=== PATIENT | female | born 1945 | race Two or more races ===

== ENCOUNTER 2020-05-10 10:30 | Outpatient (CLI) | payer MEDICARE, SELFPAY ==
--- NOTE | ~2020-05-10 | MM_ITS ---
EXAMINATION: MM screening vasu BI w andrzej HISTORY: Screening mammogram TECHNIQUE: Craniocaudal and mediolateral oblique 3-D tomosynthesis images were obtained and synthetic 2-D images were generated. CAD analysis was submitted and interpreted. COMPARISON: 01/22/2019, 04/29/2017, 03/02/2016 bilateral digital screening mammogram examinations BREAST PARENCHYMAL COMPOSITION: There are scattered areas of fibroglandular density. FINDINGS: Stable mild fibroglandular asymmetry. Scattered bilateral benign calcifications. There is n o evidence of suspicious mass, calcification, or architectural distortion to suggest malignancy in ei ther breast. There has been no suspicious interval change. IMPRESSION: 1. No mammographic evidence of malignancy. 2. Recommend routine screening mammography in one year. BI-RADS Category 2: Benign finding(s). Reviewed, dictated and finalized at location A.
== END 2020-05-10 10:31 | disposition home or self-care (01) ==
LOC: ANHIMG 10:33
PROVIDERS: PCP Family Medicine; Visit Provider Family Medicine
DX: Z12.31 Encounter for screening mammogram for malignant neoplasm of breast (principal)
CPT/HCPCS: 77063; 77067

== ENCOUNTER 2021-09-30 16:37 | Emergency (ER) | payer MEDICARE, SELFPAY ==
--- NOTE | ~2021-09-30 | XR_ITS ---
XR chest 2V DATE: 09/30/2021 17:25 INDICATION: Irregular heartbeat TECHNIQUE: PA and lateral views COMPARISON: 01/30/2019 CT lung cancer screening FINDINGS: Normal heart size. There is aortic calcification and mild tortuosity. No hilar or mediastin al enlargement is evident. No pulmonary infiltrate or consolidation, pleural effusion or pulmonary va scular congestion or pneumothorax. There is osteopenia. Degenerative spurring of the thoracic and lumbar spine. IMPRESSION: No active cardiopulmonary disease Aortic atherosclerosis Reviewed, dictated and finalized at location A. ER IN
[2021-09-30 16:48] VITALS: BP 149/77; PULSE 85; RESP 16; TEMP 36.6; O2SAT 99
--- NOTE | 2021-09-30 16:51 | ECG_ITS ---
Measurements Intervals [place] Rate: 80 P: 59 SD: 197 QRS: -5 QRSD: 142 T: 29 QT: 396 QTc: 460 Interpretive Statements SINUS RHYTHM FREQUENT VENTRICULAR PREMATURE COMPLEXES POSSIBLE LEFT ATRIAL ENLARGEMENT RIGHT BUNDLE BRANCH BLOCK ABNORMAL ECG Electronically Signed On 09-30-2021 20:24:42 EVENT HOST by Tripp Garnica D.O.
[2021-09-30 17:32] LABS: Partial Thromboplastin Time 30.5 SECONDS (22.3-36.8); Prothrombin Time 12.6 Seconds (11.1-14.7)
[2021-09-30 17:33] LABS: Basophils Percent Auto 0.4 % (0.2-1.2); Eosinophils Percent Auto 0.4 % (0-4.4); Hematocrit 34.5 % (37.0-47.0); Hemoglobin 11.2 g/dL (12.0-15.0); Immature Granulocyte Absolute 0.02 K/mm3 (0.00-0.031); Immature Granulocyte Percent A 0.3 % (0-0.5); Lymphocytes Absolute Auto 2.87 K/mm3 (0.9-3.2); Lymphocytes Percent Auto 36.8 % (18.3-44.2); Mean Corpuscular HGB Conc 32.5 g/dl (32-36); Mean Corpuscular Hemoglobin 29.8 pg (26-34); Mean Corpuscular Volume 91.8 fl (80-100); Mean Platelet Volume 10.6 fl (7.4-10.4); Monocytes Absolute Auto 0.5 K/mm3 (0.1-0.6); Monocytes Percent Auto 6.7 % (2.6-8.5); Neutrophils Absolute Auto 4.3 K/mm3 (1.3-6.7); Neutrophils Percent Auto 55.4 % (45.5-73.1); Platelet Count Result 244 k/mm3 (150-375); Red Blood Count 3.76 M/mm3 (4.2-5.4); Red Cell Distribution Width 14.3 % (11.5-14.5); White Blood Count 7.8 K/mm3 (4.5-10.0)
[2021-09-30 18:17] LABS: Alanine Aminotransferase 16 U/L (4-35); Albumin Level 4.2 g/dL (3.5-5.1); Alkaline Phosphatase 86 U/L (38-126); Anion Gap 8 mmol/L (8-16); Aspartate Amino Transferase 24 U/L (14-36); Bilirubin,Total 0.3 mg/dL (0.2-1.3); Blood Urea Nitrogen 18 mg/dL (7-17); Calcium 9.5 mg/dL (8.4-10.2); Carbon Dioxide 26 mmol/L (22-30); Chloride 101 mmol/L (98-107); Estimated CRCL calculation 40 ml/min; Estimated Glomerular Filt Rate 48; Glucose 111 mg/dL (65-110); Magnesium 1.7 mg/dL (1.6-2.3); Potassium 4.1 mmol/L (3.4-5.0); Sodium 135 mmol/L (137-145); Troponin I < 0.012 ng/mL (0.000-0.034)
[2021-09-30 21:03] VITALS: BP 142/62; PULSE 90; RESP 18; O2SAT 98
--- NOTE | 2021-09-30 21:18 | ED.GENADULT ---
HPI - General Adult General Chief complaint: Arrhythmia/Palpitations Stated complaint: irregular heart beat, no symptoms Time Seen by Provider: 09/30/21 21:09 History of Present Illness HPI narrative: Patient is a 76-year-old female presents the emergency department with chief complaint of palpitations. Patient reports that her visiting nurse today listened to her and told her I hear something funny in the top part of your heart the patient was instructed to go to her primary care physician who did an EKG and noticed that she had some PVCs the primary doctor sent her to the emergency department for evaluation of her PVCs currently the patient reports that she has no complaints denies syncope denies palpitations states that she feels fine and wants to go get something to eat. Related Data Home Medications Medication Instructions Recorded Confirmed aspirin 81 mg tablet,delayed 81 mg PO DAILY 10/30/19 09/30/21 release exenatide microspheres 2 mg/0.65 2 mg SUB-Q Q7D 10/30/19 09/30/21 mL subcutaneous pen injector insulin glargine 100 unit/mL (3 35 unit SUB-Q DAILY ml 10/30/19 09/30/21 mL) subcutaneous pen insulin regular human 100 unit/mL 40 unit SUB-Q BID ml 10/30/19 09/30/21 injection solution metformin 500 mg tablet 1,000 mg PO BID tablet 10/30/19 09/30/21 Allergies Allergy/AdvReac Type Severity Reaction Status Date / Time No Known Allergies Allergy Verified 09/30/21 14:28 Review of Systems Review of Systems: A 10 system review of systems was completed on the patient and is negative except for what is stated in the HPI. Nursing and ancillary documentation was reviewed. [facility] Past Medical History Medical History Obstructive sleep apnea (adult) (pediatric) Family History Family History Mother Diabetes mellitus Hypertension Family history of cardiovascular disease Family history of aortic aneurysm Sibling Diabetes mellitus Hypertension Father Hypertension Family history of lung cancer Family history of primary malignant neoplasm of liver Social History Social History Smoking status: Current every day smoker Second hand tobacco smoke exposure: Yes Alcohol intake: never Exam Narrative: GENERAL: Well-appearing, well-nourished, and in no acute distress. HEAD: Normocephalic, atraumatic. EYES: PERRLA and EOMI. ENT: Nares clear, no rhinorrhea or epistaxis. Mucous membranes moist. NECK: Supple. CHEST: Clear to auscultation. No respiratory distress. HEART: Regular rate and rhythm. No murmur heard. Normal peripheral pulses. ABDOMEN: Soft, nontender, nondistended, normal active bowel sounds. EXTREMITIES: Normal range of motion. No edema. SKIN: Warm, dry, no rash. NEURO: No focal deficits. Alert and oriented x3. PSYCH: Normal mood and affect. Course Course Emergency Course: EKG sinus rhythm rate of 80 occasional PVCs Vital Signs Vital signs: Vital Signs Temperature 36.6 C 09/30/21 16:48 Pulse Rate 85 09/30/21 16:48 Respiratory Rate 16 09/30/21 16:48 Blood Pressure 149/77 H 09/30/21 16:48 Pulse Oximetry 99 09/30/21 16:48 Temperature 36.6 C 09/30/21 16:48 Pulse Rate 90 09/30/21 21:03 Respiratory Rate 18 09/30/21 21:03 Blood Pressure 142/62 H 09/30/21 21:03 Pulse Oximetry 98 09/30/21 21:03 Medical Decision Making Vital Signs Vital Signs: Vital Signs Temperature 36.6 C 09/30/21 16:48 Pulse Rate 85 09/30/21 16:48 Respiratory Rate 16 09/30/21 16:48 Blood Pressure 149/77 H 09/30/21 16:48 Pulse Oximetry 99 09/30/21 16:48 Temperature 36.6 C 09/30/21 16:48 Pulse Rate 90 09/30/21 21:03 Respiratory Rate 18 09/30/21 21:03 Blood Pressure 142/62 H 09/30/21 21:03 Pulse Oximetry 98 09/30/21 21:03 Lab Data Result diagrams:
[2021-09-30] MEDS: MAGNESIUM SULF 2 GM/WATER 50ML 2 GM/50 ML BAG IVPB (21:37)
[2021-09-30 23:14] VITALS: BP 141/72; PULSE 88; RESP 18; O2SAT 97
== END 2021-09-30 23:02 | disposition home or self-care (01) ==
PROVIDERS: Family Medicine; Emergency Provider Emergency Medicine; PCP Family Medicine
DX: I49.3 Ventricular premature depolarization (principal); R00.2 Palpitations; E83.42 Hypomagnesemia; Z79.82 Long term (current) use of aspirin; Z79.4 Long term (current) use of insulin; G47.33 Obstructive sleep apnea (adult) (pediatric); F17.200 Nicotine dependence, unspecified, uncomplicated
CPT/HCPCS: 36415; 71046; 80053; 83735; 84484; 85025; 85610; 85730; 93005; 96365; 99284; J3475

== ENCOUNTER 2021-10-26 12:34 | Outpatient (CLI) | payer MEDICARE, SELFPAY ==
--- NOTE | 2021-10-30 10:07 | WPDHOLTEREM ---
Holter/Event Monitor Holter/Event Monitor Date of procedure: 10/26/21 Holter/Event Procedure: 24 Hr Holter Monitor Indications: PVC's Conclusion: 1. 24 hour holter monitor on 10/26/21. 2. Underlying rhythm is sinus rhythm. HR range 69-113 bpm; average HR 84 bpm. 3. There are 3 premature supraventricular complexes and 1 supraventricular couplet. No supraventricular tachycardia. 4. There are 19,675 premature ventricular complexes, 1,489 ventricular couplets, 8 ventricular triplets, 1,103 ventricular bigeminy and 1,765 ventricular trigeminy. There is one 4 beat multifocal ventricular complexes at 70 bpm. No ventricular tachycardia. 5. No sinoatrial or atrioventricular blocks. No significant pauses greater than 2 seconds. 6. No symptoms available for correlation.
== END 2021-10-26 12:35 | disposition home or self-care (01) ==
LOC: ANHCARD 12:35
PROVIDERS: PCP Family Medicine; Visit Provider Physician Assistant
DX: I48.92 Unspecified atrial flutter (principal); I49.3 Ventricular premature depolarization
CPT/HCPCS: 93225; 93226

== ENCOUNTER 2021-11-11 09:50 | Outpatient (CLI) | payer MEDICARE, SELFPAY ==
--- NOTE | ~2021-11-11 | NM_ITS ---
EXAMINATION: NM joseph stress w perfusion DATE: 11/11/2021 12:42 INDICATION: Abnormal electrocardiogram. Ventricular premature polarization. TECHNIQUE: Rest images were obtained following intravenous administration of 9.7 mCi Tc99m tetrofosmi n (Myoview). The patient was infused intravenously with Lexiscan (regadenoson). Then, 30.4 mCi Tc99m tetrofosmin (Myoview) was administered intravenously, and supine and prone stress images were obtaine d. Data was reconstructed into short axis and horizontal and vertical long axis SPECT images. Gated S PECT images were also obtained. COMPARISON: Myocardial perfusion imaging 04/07/2011 FINDINGS: There is no definite reversible or fixed perfusion abnormality to suggest ischemia or infar ction. There is no segmental wall motion abnormality. Left ventricular ejection fraction measures 7 0%. IMPRESSION: 1. No definite ischemia or infarct. 2. Normal left ventricular ejection fraction measuring 70%. Reviewed, dictated and finalized at location A. NICAL EDITOR
--- NOTE | 2021-11-11 10:25 | EST_ITS ---
Patient Info Name: Chanel Teixeira Age: 76 years : 1945 Gender: Female Ht: 60 in Wt: 213 lbs BSA: 2.08 m2 HR: 83 bpm BP: 141 / 71 mmHg Heart Rhythm: Sinus Arrhythmia Exam Date: 11/11/2021 11:11 AM Exam Location: [facility] Stress Patient Status: Outpatient Admit Date: 11/11/2021 Staff Ordering Physician: Sky Rodrigez PA-C Attending Provider: Sky Rodrigez PA-C Exercise Technologist: Yajaira Yao CT Exercise Physician: Tripp Garnica DO Exam Type: CA stress joseph w NM Study Info Indications I49.3 - Ventricular premature depolarization A regadenoson stress test was performed. Summary 1. 1. Negative lexiscan stress test for ischemic ST changes by ECG criteria. 2. 2. Frequent ventricular ectopics. 3. 3. Nuclear scan to follow and will be reported separately. Please correlate with it. 4. 4. Patient informed of the above results. Protocol: Lexiscan Stress ECG Details Stage: REST Duration (min): 1 min : 26 sec HR (bpm): 86 SBP (mmHg): 141 DBP (mmHg): 71 Stage: REST Duration (min): 8 min : 35 sec HR (bpm): 81 SBP (mmHg): 141 DBP (mmHg): 71 Stage: STAGE 1 Duration (min): 0 min : 59 sec HR (bpm): 96 SBP (mmHg): 135 DBP (mmHg): 50 Stage: RECOVERY Duration (min): 1 min : 0 sec HR (bpm): 97 SBP (mmHg): 135 DBP (mmHg): 50 Stage: RECOVERY Duration (min): 2 min : 0 sec HR (bpm): 97 SBP (mmHg): 135 DBP (mmHg): 50 Stage: RECOVERY Duration (min): 2 min : 26 sec HR (bpm): 99 SBP (mmHg): 130 DBP (mmHg): 46 Rest HR: 81 bpm Peak HR: 104 bpm Rest Sys BP: 141 mmHg Peak Sys BP: 135 mmHg Max Pred HR: 144 bpm % Max Pred HR: 72 % Target HR: 122 bpm Max RPP: 14,040 bpm*mmHg Termination Reason: Completed protocol Cardiac Symptoms: Shortness of breath Total Time: 1 min : 0 sec Rest Stroud BP: 71 mmHg Peak Stroud BP: 50 mmHg Total Dose: 0.4 mg Resting ECG Sinus rhythm, frequent PVC's, RBBB. Stress ECG No ST changes. Arrhythmias None. Report Signatures
== END 2021-11-11 09:51 | disposition home or self-care (01) ==
PROVIDERS: PCP Family Medicine; Visit Provider Physician Assistant
DX: I49.3 Ventricular premature depolarization (principal); R94.31 Abnormal electrocardiogram [ECG] [EKG]
CPT/HCPCS: 78452; 93017; A9502; J2785

== ENCOUNTER 2021-12-23 12:34 | Outpatient (CLI) | payer MEDICARE, SELFPAY ==
--- NOTE | ~2021-12-23 | CT_ITS ---
EXAMINATION: CT lung screening DATE: 12/23/2021 12:57 INDICATION: screening for lung cancer TECHNIQUE: Computed tomography (CT) of the chest was performed without intravenous contrast. Addition al 3D reconstructions utilizing coronal maximum intensity projection (MIP) were performed. Automated exposure control and iterative reconstruction technique were employed. The dose-length product was 18 6.24 mGy-cm. COMPARISON: 01/30/2019 FINDINGS: Unchanged 3 mm groundglass nodule at the left upper lobe on series 4, image 42. Additional unchanged 3 mm nodule at the anterobasilar right lower lobe on image 80. No new or enlarging pulmonary nodules, pneumonia, pulmonary edema or pleural effusion. Heart size is normal. Atherosclerotic coronary arter y calcific lesion. Thoracic aorta is normal in caliber with additional atherosclerotic calcifications . No pericardial effusion. No pathologically enlarged thoracic lymphadenopathy. Visualized upper abdo men is unremarkable. Mild to moderate thoracic spondylosis. IMPRESSION: 1. Lung-RADS category 2: Benign appearance or behavior. Continue annual screening with noncontrast lo w-dose chest CT in 12 months. Reviewed, dictated and finalized at location A. IMPRESSION: 1. Lung-RADS category 2: Benign appearance or behavior. Continue annual screeni ng with noncontrast low-dose chest CT in 12 months.
== END 2021-12-23 12:35 | disposition home or self-care (01) ==
PROVIDERS: PCP Family Medicine; Visit Provider Physician Assistant
DX: Z12.2 Encounter for screening for malignant neoplasm of respiratory organs (principal); Z87.891 Personal history of nicotine dependence
CPT/HCPCS: 71271

== ENCOUNTER 2022-03-22 14:38 | Outpatient (CLI) | payer MEDICARE, SELFPAY ==
--- NOTE | ~2022-03-22 | DEXA_ITS ---
Bone Density Report Name: MARK GOODE Age: 76 Sex: Female Ethnicity: White Date of : 1945 Indication: postmenopausal; screening for osteoporosis; height loss; hysterectomy; rheumatoid arthritis; Referring Provider: DALILA DORAN Study: Bone densitometry was performed. Exam Date: March 22, 2022 Accession number: [id number] Bone Density: Region BMD T-score Z-score Classification AP Spine(L1-L4) 0.885 -1.5 1.0 Osteopenia Femoral Neck (Left) 0.561 -2.6 -0.4 Osteoporosis Total Hip (Left) 0.714 -1.9 0.0 Osteopenia Femoral Neck (Right) 0.564 -2.6 -0.4 Osteoporosis Total Hip (Right) 0.775 -1.4 0.5 Osteopenia Total Hip Mean 0.744 -1.7 0.3 Osteopenia World Health Organization criteria for BMD impression classify patients as: Normal (T-score at or above -1.0), Osteopenia (T-score between -1.0 and -2.5), or Osteoporosis (T-score at or below -2.5). 10-year Fracture Risk: FRAX not reported because: Some T-score for Spine Total or Hip Total or Femoral Neck at or below -2.5 Clinical Information Provided by Patient: Smokes Has rheumatoid arthritis Has the following medical conditions: Hysterectomy Patient maximum height was 62 Menopause Age: 41 Drinks caffeinated beverages Onset of menses at age 11 Impression: UNAPPROVED The patient has osteoporosis, based on the Left Femoral Neck T-score. The patient has risk factors, including: smoking. Discussion: UNAPPROVED INCREASED RISK OF FRACTURE. BONE DENSITY IS UNDESIRABLY LOW AT ONE OR MORE SKELETAL SITES, CONSISTENT WITH POSTMENOPAUSAL OSTEOPOROSIS. This patient's lowest T-score meets the World Health Organization's (WHO) criteria for osteoporosis at one or more sites (T-score -2.5 or below). In untreated patients, the risk of osteoporotic fracture increases approximately two-fold for each 1.0 SD decrease in T-score. Low bone density is not the only risk factor for fracture; also consider factors such as patient's age, frailty or poor health, risk of falling, risk of injury, previous osteoporotic fracture, family history of osteoporosis, cigarette smoking, low body weight, etc. Not everyone with low bone mineral density has osteoporosis; osteomalacia and other metabolic bone disorders should also be considered. Patients who have osteoporosis should be evaluated for specific diseases and conditions (secondary causes) that may cause or contribute to bone loss. The [place] [employer] Endocrinologists (AACE) and National Osteoporosis Foundation (NOF) recommend pharmacologic intervention for all postmenopausal women whose T-score is in this range. The patient should follow a healthful lifestyle (good nutrition with adequate calcium and vitamin D, and appropriate weight-bearing exercise). Follow-Up: UNAPPROVED Consider a repeat BMD and Jonnie
--- NOTE | ~2022-03-22 | MM_ITS ---
EXAMINATION: MM screening vasu BI w andrzej HISTORY: Screening TECHNIQUE: Craniocaudal and mediolateral oblique 3-D tomosynthesis images were obtained and synthetic 2-D images were generated. CAD analysis was submitted and interpreted. COMPARISON: Comparison to multiple prior studies sequentially, with oldest reviewed study dated 12/24. BREAST PARENCHYMAL COMPOSITION: There are scattered areas of fibroglandular density. FINDINGS: There is no evidence of suspicious mass, calcification, or architectural distortion to sugg est malignancy in either breast. There has been no suspicious interval change. IMPRESSION: 1. No mammographic evidence of malignancy. 2. Recommend routine screening mammography in one year. BI-RADS Category 1: Negative Reviewed, dictated and finalized at location A.
== END 2022-03-22 14:39 | disposition home or self-care (01) ==
LOC: ANHIMG 14:39
PROVIDERS: PCP Physician Assistant; Visit Provider Physician Assistant
DX: Z12.31 Encounter for screening mammogram for malignant neoplasm of breast (principal); Z78.0 Asymptomatic menopausal state; Z13.820 Encounter for screening for osteoporosis; M81.0 Age-related osteoporosis without current pathological fracture; M85.88 Other specified disorders of bone density and structure, other site; Z51.81 Encounter for therapeutic drug level monitoring; Z79.899 Other long term (current) drug therapy
CPT/HCPCS: 77063; 77067; 77080

== ENCOUNTER 2022-06-15 11:14 | Outpatient (CLI) | payer MEDICARE, SELFPAY ==
--- NOTE | ~2022-06-15 | XR_ITS ---
EXAMINATION: [id number] INDICATION: Pleurodynia TECHNIQUE: A frontal view of the chest and 3 views of the right ribs were obtained. COMPARISON: None. FINDINGS: There is an acute, minimally displaced fracture at the anterolateral aspect of the right se venth rib. No additional fracture is identified. The lungs are free of acute opacities. No pleural ef fusion or pneumothorax. The heart size is normal. Calcified atherosclerosis is noted. IMPRESSION: 1. Acute, minimally displaced fracture at the anterolateral aspect of the right seventh rib. 2. No acute cardiopulmonary abnormality. Reviewed, dictated and finalized at location A.
== END 2022-06-15 11:15 | disposition home or self-care (01) ==
PROVIDERS: PCP Family Medicine; Visit Provider Family Medicine
DX: R07.81 Pleurodynia (principal); I70.0 Atherosclerosis of aorta
CPT/HCPCS: 71101

== ENCOUNTER 2022-11-22 09:23 | Outpatient (CLI) | payer MEDICARE, SELFPAY ==
[2022-11-22 20:14] LABS: Basophils Percent Auto 0.5 % (0.2-1.2); Eosinophils Absolute Auto 0.1 K/mm3 (0-0.3); Hematocrit 35.4 % (37.0-47.0); Hemoglobin 11.6 g/dL (12.0-15.0); Immature Granulocyte Absolute 0.01 K/mm3 (0.00-0.031); Immature Granulocyte Percent A 0.2 % (0-0.5); Lymphocytes Absolute Auto 2.79 K/mm3 (0.9-3.2); Mean Corpuscular HGB Conc 32.8 g/dl (32-36); Mean Corpuscular Hemoglobin 30.3 pg (26-34); Mean Corpuscular Volume 92.4 fl (80-100); Mean Platelet Volume 11.7 fl (7.4-10.4); Monocytes Absolute Auto 0.5 K/mm3 (0.1-0.6); Monocytes Percent Auto 8.2 % (2.6-8.5); Neutrophils Absolute Auto 2.8 K/mm3 (1.3-6.7); Neutrophils Percent Auto 45.1 % (45.5-73.1); Platelet Count Result 191 k/mm3 (150-375); Red Blood Count 3.83 M/mm3 (4.2-5.4); Red Cell Distribution Width 14.1 % (11.5-14.5); White Blood Count 6.2 K/mm3 (4.5-10.0)
[2022-11-22 20:34] LABS: Alanine Aminotransferase 18 U/L (6-35); Albumin Level 3.9 g/dL (3.5-5.1); Alkaline Phosphatase 65 U/L (38-126); Anion Gap 7 mmol/L (8-16); Aspartate Amino Transferase 21 U/L (14-36); Bilirubin,Total 0.5 mg/dL (0.2-1.3); Blood Urea Nitrogen 19 mg/dL (7-17); Calcium 9.4 mg/dL (8.4-10.2); Carbon Dioxide 27 mmol/L (22-30); Chloride 104 mmol/L (98-107); Cholesterol 133 mg/dL (0-200); Estimated Glomerular Filt Rate > 60; Glucose 143 mg/dL (65-110); HDL Direct 57 mg/dL; Potassium 4.1 mmol/L (3.4-5.0); Sodium 138 mmol/L (137-145); Triglycerides 87 mg/dL (<150)
[2022-11-22 20:45] LABS: LDL Cholesterol Direct 42 mg/dL
== END 2022-11-22 09:24 | disposition home or self-care (01) ==
LOC: ANHGOSHLAB 09:24
PROVIDERS: PCP Family Medicine; Visit Provider Family Medicine
DX: E78.2 Mixed hyperlipidemia (principal); R53.83 Other fatigue; I10 Essential (primary) hypertension; E53.8 Deficiency of other specified B group vitamins
CPT/HCPCS: 36415; 80053; 80061; 82607; 85025

== ENCOUNTER 2023-02-08 14:58 | Outpatient (CLI) | payer MEDICARE, SELFPAY ==
--- NOTE | ~2023-02-08 | CT_ITS ---
EXAMINATION: CT lung screening DATE: 02/08/2023 15:30 INDICATION: Personal history of nicotine dependence, current smoker with 40 pack year history TECHNIQUE: Computed tomography (CT) of the chest was performed without intravenous contrast. The dose -length product (DLP) was 215.83 mGy-cm. Automated exposure control and iterative reconstruction tech [employer] were employed. COMPARISON: 12/23/2021 FINDINGS: There is mild emphysema. There is a stable 3 mm nodule of the right lower lobe. A few scatt ered groundglass nodules measuring up to 4 mm are also stable. No new pulmonary nodule is identified. There is mild dependent atelectasis. No pleural effusion or pneumothorax. No pathologically enlarged thoracic lymph nodes are identified. The heart size is normal. There is calcified coronary artery at herosclerosis. There is moderate thoracic spondylosis. IMPRESSION: 1. Lung-RADS category 2: Benign appearance or behavior. Continue annual screening with noncontrast lo w-dose chest CT in 12 months. Reviewed, dictated and finalized at location F. IMPRESSION: 1. Lung-RADS category 2: Benign appearance or behavior. Continue annual screeni ng with noncontrast low-dose chest CT in 12 months.
== END 2023-02-08 14:59 | disposition home or self-care (01) ==
PROVIDERS: PCP Family Medicine; Visit Provider Family Medicine
DX: Z12.2 Encounter for screening for malignant neoplasm of respiratory organs (principal); Z87.891 Personal history of nicotine dependence
CPT/HCPCS: 71271

== ENCOUNTER 2023-06-22 15:48 | Outpatient (CLI) | payer MEDICARE, SELFPAY ==
--- NOTE | ~2023-06-22 | MM_ITS ---
EXAMINATION: MM screening vasu BI w andrzej HISTORY: Screening mammogram TECHNIQUE: Craniocaudal and mediolateral oblique 3-D tomosynthesis images were obtained and synthetic 2-D images were generated. CAD analysis was submitted and interpreted. COMPARISON: 03/22/2022, 05/10/2020, 01/30/2019 BREAST PARENCHYMAL COMPOSITION:There are scattered areas of fibroglandular density. FINDINGS: No suspicious mass, calcification, or architectural distortion are identified in either anjelica ast to suggest malignancy. There has been no suspicious interval change. IMPRESSION: No mammographic evidence of malignancy. Recommend routine screening mammography in one year. BI-RADS Category 1: Negative Reviewed, dictated and finalized at location .
== END 2023-06-22 15:49 | disposition home or self-care (01) ==
LOC: ANHIMG 15:51
PROVIDERS: PCP Family Medicine; Visit Provider Family Medicine
DX: Z12.31 Encounter for screening mammogram for malignant neoplasm of breast (principal)
CPT/HCPCS: 77063; 77067